=== PATIENT | male | born 1980 | race Caucasian/White ===

== ENCOUNTER 2023-07-29 08:23 | Day surgery (SDC) | payer SELFPAY ==
[~2023-07-29] VITALS: Ht 182.9 cm; Wt 86.9 kg
[2023-07-29] VITALS (16 sets, daily range): BP systolic 99–124; BP diastolic 48–86; PULSE 45–54; TEMP 97.8–98.5
[2023-07-29] MEDS ORDERED: ASPIRIN 81M81 MG/TA2 PO (08:38)
[2023-07-29] MEDS ORDERED: ZESTRIL 20MG TA20 MG PO (08:39)
[2023-07-29] MEDS ORDERED: LASIX 40MG TABL40 MG PO (08:39)
[2023-07-29] MEDS ORDERED: TOPROL XL 50MG50 MG PO (08:39)
[2023-07-29 09:19] LABS: HEMATOCRIT 37.5 % (42.0-52.0); HEMOGLOBIN 12.2 g/dl (13.5-18.0); MEAN CELL VOLUME 86 fl (80.0-100.0); MEAN CORPUSCULAR HEMOGLOBIN 28 pg (27-31); MEAN CORPUSCULAR HGB CONC 33 g/dl (33.0-37.0); MEAN PLATELET VOLUME 10.1 fl (7.4-10.4); PLATELET COUNT 231 K/mm3 (130-400); RED BLOOD COUNT 4.34 M/mm3 (4.20-5.60); REDCELL DISTRIBUTION WIDTH-CV 13.9 % (11.5-14.5)
[2023-07-29 09:26] LABS: PROTHROMBIN TIME 10.8 SECONDS (9.7-12.8)
[2023-07-29 09:31] LABS: CALCIUM 9.1 mg/dL (8.4-10.2); CREATININE, serum 0.72 mg/dL (0.72-1.25); POTASSIUM 4.3 mmol/L (3.5-4.5)
--- NOTE | 2023-07-29 10:25 | NUR ---
PT TAKEN BACK TO [facility]
--- NOTE | 2023-07-29 10:52 | NUR ---
Please see merge documentation for record of interventions, vitals and medications administered during left heart cath.
--- NOTE | 2023-07-29 12:27 | NUR ---
Pt being admitted to the medical floor post cath-lab due to interventions. Report called to Susie MCARTHUR.
--- NOTE | 2023-07-29 13:33 | NUR ---
PATIENT ADMITTED TO MEDICAL UNIT AT THIS TIME. ADMISSION INTAKE AND ASSESSMENT COMPLETED. MED REC UPDATED. CALL LIGHT WITHIN REACH. POST OP VSS. UPDATED PATIENT AND FAMILY ON POC. TR BAND IN PLACE, SITE IS C/D/I, 12CC AIR IN BAND. WILL CONTINUE TO MONITOR.
--- NOTE | 2023-07-29 14:45 | NUR ---
THIS RN ATTEMPTED TO RELEASE AIR FROM TR BAND AT THIS TIME, SMALL AMOUT OF BLEEDING BEGAN, THIS RN FILLED BAND BACK TO 11CC. WILL CONTINUE TO MONITOR.
--- NOTE | 2023-07-29 16:25 | NUR ---
Test Engineer Nuclear Equipment received a consult from Cardiology as patient is self pay and cannot afford medications. Patient also needs a Life Vest. ROYA faxed order for Life Vest to [facility] and contacted Mikel at [facility] via email. ROYA also consulted Financial Counseling to inquire about a Financial Assistance Application and/or Medicaid application. BLUE Nieves advised patient will be sent home on plavix. ROYA will follow up with patient tomorrow.
--- NOTE | 2023-07-29 21:43 | NUR ---
Patient assessed reillyudn 2014. Able to release the rest of the air from TR band and placed bandaid to site. No bleeding noted, no hematoma. Denies having pain and discomfort. IV fluids running to IV site on left forearm. Voices no questions, needs, or concerns at this time. In bed with call light within reach.
[2023-07-30 00:58] VITALS: BP_SYST 113
[2023-07-30 03:17] VITALS: BP 127/69; PULSE 54; TEMP 98
[2023-07-30 03:59] VITALS: BP_SYST 127
[2023-07-30 05:57] LABS: BASO # 0.1 K/mm3 (0.0-0.2); BASO % 1.3 % (0.0-2.0); EOS # 0.3 K/mm3 (0.0-0.7); EOS % 3.8 % (0.0-4.0); GRAN # 4.6 K/mm3 (1.4-6.5); GRAN % 61.2 % (42.2-75.2); HEMOGLOBIN 11.7 g/dl (13.5-18.0); LYMPH # 2.1 K/mm3 (1.2-3.4); LYMPH % 28.1 % (20.0-51.0); MEAN CELL VOLUME 86 fl (80.0-100.0); MEAN CORPUSCULAR HEMOGLOBIN 28 pg (27-31); MEAN CORPUSCULAR HGB CONC 32 g/dl (33.0-37.0); MONO # 0.4 K/mm3 (0.1-0.6); MONO % 5.3 % (1.7-9.3); PLATELET COUNT 205 K/mm3 (130-400); RED BLOOD COUNT 4.22 M/mm3 (4.20-5.60); REDCELL DISTRIBUTION WIDTH-CV 13.7 % (11.5-14.5)
[2023-07-30 06:02] LABS: HEMATOCRIT 36.3 % (42.0-52.0)
--- NOTE | 2023-07-30 06:05 | NUR ---
Patient has denied having pain and discomfort this shift. Voices no questions, needs, or concerns at this time. In bed with call light within reach.
[2023-07-30 06:21] LABS: CALCIUM 8.8 mg/dL (8.4-10.2); CREATININE, serum 0.8 mg/dL (0.72-1.25); POTASSIUM 4.2 mmol/L (3.5-4.5)
[2023-07-30 07:24] VITALS: BP 134/78; PULSE 58; TEMP 97.6
[2023-07-30 09:05] VITALS: BP_SYST 134
--- NOTE | 2023-07-30 09:15 | NUR ---
CARDIAC EVENT MONITOR CURRENTLY BEING PLACED.
[2023-07-30] MEDS ORDERED: LIPITOR 80MG80 MG PO (11:26)
[2023-07-30] MEDS ORDERED: PLAVIX 75MG TAB75 MG PO (11:26)
--- NOTE | 2023-07-30 11:26 | NUR ---
Patient attempting to sleep upon entry. Discussed importance of Cardiac Rehab enrollment due to young age. Reviewed risk factors for heart disease and what cardiac rehab would review if attending. Patient reported [facility] as prefered location. Referral will be faxed.
[2023-07-30 11:53] VITALS: BP 124/83; PULSE 57; TEMP 98.2
--- NOTE | 2023-07-30 12:53 | NUR ---
Aircraft Fuselage Framer met with patient to discuss dishcarge planning. Patient lives in [place] with his parents, Nancy and Harvey (ph#[phone]). Patient does not have primary care established and declined when SW offered to set him up with the [facility]. Patient obtains medications from [facility] in and stated he had no concerns about affording his discharge medications. Patient does not currently use any DME and is independent with [employer]LS. Patient does not have DPOA-HC and is not interested in completing one. ROYA discussed securing a Life Vest per Cardiology recommendation. ROYA provided Financial Assistance Application to be completed by patient. ROYA spoke with Cardiology and was advised patient can discharge today and have the Life Vest fitted at home. Patient's parents arrived and assisted patient with filling out the paperwork. ROYA Brown spoke with them about faxing in the application with supporting documentation. Patient's parents advised they will fax it from [employer]. Mikel Alvarado advised not to submit the application until they have supporting documents, so they will secure the tax return then fax it with the completed application.
--- NOTE | 2023-07-30 13:24 | NUR ---
PATIENTS IV AND TELE REOMVED. PATIENT HAS EXTERNAL HEART MONITOR ON HIS CHEST. PLACED EARLIER. PATIENT GIVEN DISCHARGE INSTRUCTIONS AND EDUCATION. SW IN ROOM AND INSTRUCTED PATIENT ON FORMS FOR LIFE VEST AND MEDICAID. JANE LEFT IN STABLE CONDITION IN THE CARE OF HIS MOM AND DAD.
== END 2023-07-30 13:26 | disposition home or self-care (01) ==
LOC: COL.CAR 08:23 → MEDICAL 12:58 → COL.CAR 07-30 13:26
PROVIDERS: Internal Medicine Cardiovascular Disease
DX: I25.10 Atherosclerotic heart disease of native coronary artery without angina pectoris (principal); I42.0 Dilated cardiomyopathy; I25.5 Ischemic cardiomyopathy; I47.20 Ventricular tachycardia, unspecified; I10 Essential (primary) hypertension; I50.23 Acute on chronic systolic (congestive) heart failure; Z87.891 Personal history of nicotine dependence; Z87.898 Personal history of other specified conditions; Z28.310 Unvaccinated for COVID-19; Z79.899 Other long term (current) drug therapy; Z79.82 Long term (current) use of aspirin
CPT/HCPCS: OP; J0583; J1644; J2250; J3010